=== PATIENT | female | born 1940 | race American Indian/Alaskan Native ===

== ENCOUNTER 2017-05-19 13:35 | Inpatient (IN) | payer MEDICARE ==
--- NOTE | 2017-05-19 13:51 | ED PDOC ---
HPI: Psych/Substance Abuse Time Seen by Provider: 05/19/17 13:44 Chief Complaint (Nursing): Psychiatric Evaluation Chief Complaint (Provider): Psychiatric Evaluation ED Caveat: Uncooperative History Per: Patient, EMS History/Exam Limitations: clinical condition Current Symptoms Are (Timing): Still Present Additional Complaint(s): Patient is a 18 y/o female brought to the ED by EMS after she was found wandering the streets, with bizarre behavior and aggression. In ED patient is aggressive, spitting at staff. Flight risk. Patient has abrasions diffusely on her body. She is in acute psychosis, there was attempt to verbally redirect patient, but patient is uncooperative and requiring 4 point restraints. Past medical history of heroin, cocaine, and alcohol abuse. Patient was reportedly supposed to be en route to [place] for rehab today. Buprenex was found in patients possession. Appears to have been filled on , 43 pills out of 60 remain (11 pills missing). Label suggests patient should be taking medication BID. PMD: Unknown Past Medical History Reviewed: Unable To Obtain Vital Signs: Last Vital Signs Temp 97.8 F 05/19/17 13:44 Pulse 110 H 05/19/17 13:44 Resp 18 05/19/17 13:44 BP 150/99 H 05/19/17 13:44 Pulse Ox 99 05/19/17 13:44 - Family History Family History: States: Unknown Family Hx - Social History Alcohol: > 2 Drinks/Day Drugs: Cocaine, Opiates - Allergies Allergies/Adverse Reactions: Allergies Allergy/AdvReac Type Severity Reaction Status Date / Time No Known Allergies Allergy Verified 05/19/17 13:39 Review of Systems Review Of Systems: ROS cannot be obtained secondary to pt's inabilty to answer questions. Physical Exam - Reviewed Nursing Documentation Reviewed: Yes Vital Signs Reviewed: Yes - ECG O2 Sat by Pulse Oximetry: 99 (RA) Pulse Ox Interpretation: Normal Medical Decision Making Medical Decision Making: Time: 13:45 Plan: --Will have crisis evaluation and blood work Scribe Attestation: Documented by Lianna Keating, acting as a scribe for Chantell Luis PA-C Provider Scribe Attestation: All medical record entries made by the Scribe were at my direction and personally dictated by me. I have reviewed the chart and agree that the record accurately reflects my personal performance of the history, physical exam, medical decision making, and the department course for this patient. I have also personally directed, reviewed, and agree with the discharge instructions and disposition. Disposition - Disposition Forms: [employer] (Bulgarian)
[2017-05-19 15:25] LABS: BASO % 0.4 % (0.0-2.0); EOS % 0.1 % (0.0-4.0); HEMATOCRIT 45.4 % (34.0-47.0); LYMPH # 1.6 K/uL (1.0-4.3); MEAN CELL VOLUME 95.3 fl (81.0-99.0); MEAN CORPUSCULAR HEMOGLOBIN 30.6 pg (27.0-31.0); MEAN CORPUSCULAR HGB CONC 32.1 g/dL (33.0-37.0); MEAN PLATELET VOLUME 10.8 fl (7.2-11.7); MONO # 0.5 K/uL (0.0-0.8); MONO % 7.1 % (0.0-10.0); NEUT # 4.6 K/uL (1.8-7.0); NEUT % 68.4 % (50.0-75.0); WHITE BLOOD COUNT 6.8 K/uL (4.8-10.8)
[2017-05-19 15:38] LABS: ALB/GLOB RATIO 1.3 (1.0-2.1); ALKALINE PHOSPHATASE 62 U/L (38-126); ALT/SGPT 29 U/L (9-52); AST/SGOT 25 U/L (14-36); BILIRUBIN,TOTAL 0.7 mg/dl (0.2-1.3); BLOOD UREA NITROGEN 20 mg/dl (7-17); CARBON DIOXIDE 23 mmol/L (22-30); CHLORIDE 104 mmol/L (98-107); GFR AFRICAN-AMERICAN > 60; GLUCOSE,RANDOM 210 mg/dL (65-105); POTASSIUM 3.8 MMOL/L (3.6-5.0); SODIUM 140 mmol/l (132-148)
[2017-05-19 16:24] LABS: RBC URINE 1 /hpf (0-3); URINE BACTERIA RARE (<OCC); URINE BILIRUBIN NEGATIVE (NEGATIVE); URINE BLOOD SMALL (NEGATIVE); URINE COLOR STRAW (YELLOW); URINE GLUCOSE (UA) 50 mg/dL (Normal); URINE KETONE NEGATIVE (NEGATIVE); URINE LEUKOCYTE ESTERASE NEG Leu/uL (Negative); URINE PROTEIN NEGATIVE (NEGATIVE); URINE UROBILINOGEN 0.2-1.0 mg/dL (0.2-1.0); WBC URINE < 1 /hpf (0-5)
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
[2017-05-19 19:13] VITALS: O2SAT 98
[2017-05-19] MEDS ORDERED: Bismuth Subsalicylate 262 mg/15 ml Sus (240 ml) PO PRN (22:08)
[2017-05-19] MEDS ORDERED: Alum-Mag Hydrox-Simethicone Susp (30 mL) PO PRN (22:08)
--- NOTE | 2017-05-19 22:54 | PCM.BM ---
<Shereen Norton - Last Filed: 05/19/17 22:52> Treatment Plan Problems - Problems identified on initial assessmt Agitated/Aggressive Behavior Date Initiated: 05/19/17 Time Initiated: 22:53 Assessment reference: NA Status: Active Delusion Date Initiated: 05/19/17 Time Initiated: 22:54 Assessment reference: NA Status: Active Treatment assets and liabiliti Patient Assests: adapts well, cooperative, self-reliant, good support system, negotiates basic needs, cognitively intact Patient Liabilities: medical problems, visual impairment - Milieu Protocol Maintain good personal hygiene: daily Encourage regular showers, daily Remind patient to perform daily oral care, other Assist patient to perform ADL's (prn) Conduct patient checks and document Observation sheet: Constant Maintain personal safety: every shift Educate patient to report safety concerns to staff, every shift Monitor environment for contraband/sharps Medication safety: Monitor for expected outcome, potential side effects: every shift, Assess barriers to learning: every shift, Assess readiness for medication education: every shift <Veronika Harris - Last Filed: 05/20/17 12:37> - Diagnosis (1) Psychosis Status: Acute Interventions: Individual and group therapy, medication management, psychoeducation 05/20/17 12:37 <Alex Vega - Last Filed: 05/25/17 10:15> Family Contact Family contact: Patient agrees to contact, Family has been contacted by patient , Telephone contact initiated by staff Family contact name: Lianna Yepez ([phone]) Family contacted how many times per week?: 2
[2017-05-20 07:39] LABS: T4 12.8 ug/dl (5.5-11.0)
[2017-05-20 07:53] LABS: THYROID STIMULATING HORMONE 3.83 mIU/ML (0.46-4.68)
[2017-05-20 08:05] LABS: IRON 108 ug/dL (37-170)
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
--- NOTE | 2017-05-20 09:37 | RAD ---
HISTORY: medical exam COMPARISON: No prior. FINDINGS: LUNGS: The lungs are well inflated and clear. PLEURA: No significant pleural effusion identified, no pneumothorax apparent. CARDIOVASCULAR: Normal. OSSEOUS STRUCTURES: No significant abnormalities. VISUALIZED UPPER ABDOMEN: Normal. OTHER FINDINGS: None. IMPRESSION: No active pulmonary disease.
--- NOTE | 2017-05-20 12:06 | CP.PCM.CON ---
History of Present Illness - History of Present Illness History of Present Illness: Reason for Consult: per hospital protocol CC: pt does not know why she is here HPI : 77 year old female with PMH glaucoma, HTN, HLD, DM, presents after a dispute with her family. Patient possibly early dementia. No other complaints, HD stable, NAD. ROS: per HPI, 12 systems reviewed and negative PMH: glaucoma, HTN, HLD, DM, PSH: glaucoma FH: denies SH: denies tobacco, ETOH, IVDU Meds: as below Allergies: NKDA Vitals: reviewed and currently stable Temp Pulse Resp BP Pulse Ox 97.2 F L 80 19 144/79 98 05/20/17 06:00 05/20/17 06:00 05/20/17 06:00 05/20/17 06:00 05/19/17 19:28 Exam: GEN: WDWN, alert, cooperative HEENT: NCAT, PERRL, EOMI NECK: supple, no JVD, no lymphadenopathy CARDIAC: +S1S2 RRR LUNG: CTAB No WRR ABD: SOFT NT ND BSX4 NO MASSES NO HSM EXT: +pedal pulses, equal strength NEURO: AAOx3 SKIN warm, dry PSYCH normal mood, normal affect Labs: 05/19/17 15:00 05/19/17 15:00 05/19/17 22:08 Acetaminophen [Tylenol 325mg tab] 650 mg PO Q4 PRN Aluminum Hydroxide/Magnesium [Maalox Plus 30 ml] 30 ml PO Q4 PRN Bismuth Subsalicylate [Pepto-Bismol] 524 mg PO Q4 PRN LORazepam [Ativan] 0.5 mg PO HS PRN LORazepam [Ativan] 0.5 mg PO Q6 PRN Magnesium Hydroxide [Milk Of Magnesia] 30 ml PO HS PRN Losartan [Cozaar] 50 mg PO DAILY Metoprolol Succinate [Toprol XL] 50 mg PO DAILY PrednisoLONE 1% [Pred Forte 1% Opht Susp] 1 drop OD DAILY Dorzolamide 2% [Trusopt] 1 drop OU TID Sitagliptin Phos/Metformin HCl [Janumet Xr 50-1,000 mg Tablet] 1 tab PO BID Atorvastatin [Lipitor] 40 mg PO DAILY Assessment and Plan: 77 year old female with PMH glaucoma, HTN, HLD, DM, presents after a dispute with her family. Patient possibly early dementia. No other complaints, HD stable , NAD. Psychiatric Issue Management per psych HTN continue toprol and cozaar DM continue DM meds GLAUCOMA continue drops Past Patient History - Past Social History Alcohol: None Drugs: Denies - CARDIAC Hx Cardiac Disorders: No Hx Hypertension: Yes - PULMONARY Hx Tuberculosis: No - NEUROLOGICAL HX Cerebrovascular Accident: No Hx Seizures: No - HEENT Hx Glaucoma: Yes (OU) - ENDOCRINE/METABOLIC Hx Diabetes Mellitus Type 1: Yes - HEMATOLOGICAL/ONCOLOGICAL Hx Cancer: No Hx Human Immunodeficiency Virus (HIV): No - MUSCULOSKELETAL/RHEUMATOLOGICAL Hx Falls: No - GENITOURINARY/GYNECOLOGICAL Hx Sexually Transmitted Disorders: No - PSYCHIATRIC Hx Substance Use: No - SURGICAL HISTORY Other/Comment: Surgeries both eyes - ANESTHESIA Hx Anesthesia: Yes Hx Anesthesia Reactions: No Hx Malignant Hyperthermia: No Has any member of the family had a problem w/ anesthesia?: No Meds Allergies/Adverse Reactions: Allergies Allergy/AdvReac Type Severity Reaction Status Date / Time No Known Allergies Allergy Verified 05/19/17 13:39 - Medications Medications: Current Medications Acetaminophen (Tylenol 325mg Tab) 650 mg PO Q4 PRN PRN Reason: Pain, moderate (4-7) Al Hydrox/Mg Hydrox/Simethicone (Maalox Plus 30 Ml) 30 ml PO Q4 PRN PRN Reason: Dyspepsia Atorvastatin Calcium (Lipitor) 40 mg PO DAILY PENDING SALE TO [facility] Bismuth Subsalicylate (Pepto-Bismol) 524 mg PO Q4 PRN PRN Reason: Diarrhea Dorzolamide HCl (Trusopt) 1 drop OU TID PENDING SALE TO [facility] Home Med (Sitagliptin Phos/Metformin Hcl [Janumet Xr 50-1,000 Mg Tablet]) 1 tab PO BID PENDING SALE TO [facility] Lorazepam (Ativan) 0.5 mg PO HS PRN PRN Reason: Insomnia Stop: 06/02/17 22:09 Last Admin: 05/19/17 22:39 Dose: 0.5 mg Lorazepam (Ativan) 0.5 mg PO Q6 PRN PRN Reason: Anixety/Agitation Stop: 06/02/17 22:09 Losartan Potassium (Cozaar) 50 mg PO DAILY PENDING SALE TO [facility] Magnesium Hydroxide (Milk Of Magnesia) 30 ml PO HS PRN PRN Reason: Constipation Metoprolol Succinate (Toprol Xl) 50 mg PO DAILY ANDREA Prednisolone Acetate (Pred Forte 1% Opht Susp) 1 drop OD DAILY ANDREA Results - Vital Signs Recent Vital Signs: Last Vital Signs Temp 97.2 F L 05/20/17 06:00 Pulse 80 05/20/17 06:00 Resp 19 05/20/17 06:00 BP 144/79 05/20/17 06:00 Pulse Ox 98 05/19/17 19:28 - Labs Result Diagrams: 05/19/17 15:00 05/19/17 15:00 Labs: Laboratory Results - last 24 hr 05/19/17 05/20/17 05/20/17 22:40 05:52 06:30 POC Glucose (mg/dL) 223 H 112 H Hemoglobin A1c Iron TIBC % Saturation Ferritin 29.9 Triglycerides 84 Cholesterol 131 LDL Cholesterol Direct 69 HDL Cholesterol 39 Vitamin B12 184 L Free T4 Thyroxine (T4) 12.8 H TSH 3rd Generation 3.83 05/20/17 05/20/17 05/20/17 06:30 06:30 06:30 POC Glucose (mg/dL) Hemoglobin A1c 7.7 H Iron 108 TIBC 336 % Saturation 32 Ferritin Triglycerides Cholesterol LDL Cholesterol Direct HDL Cholesterol Vitamin B12 Free T4 1.43 Thyroxine (T4) TSH 3rd Generation 05/20/17 10:47 POC Glucose (mg/dL) 265 H Hemoglobin A1c Iron TIBC % Saturation Ferritin Triglycerides Cholesterol LDL Cholesterol Direct HDL Cholesterol Vitamin B12 Free T4 Thyroxine (T4) TSH 3rd Generation
[2017-05-20] MEDS: Metoprolol Succinate 50 mg XL Tab PO SCH (15:38)
[2017-05-20] MEDS: PrednisoLONE 1% OPTH SUSP OD SCH (15:41)
[2017-05-20] MEDS: Dorzolamide 2% Ophth Soln OU SCH ×2 (15:42→21:01)
--- NOTE | 2017-05-20 16:33 | CT ---
PROCEDURE: CT HEAD WITHOUT CONTRAST. HISTORY: Episodes of confusion COMPARISON: None available. TECHNIQUE: Axial computed tomography images were obtained through the head/brain without intravenous contrast. Radiation dose: Total exam DLP = 767.42 mGy-cm. This CT exam was performed using one or more of the following dose reduction techniques: Automated exposure control, adjustment of the mA and/or kV according to patient size, and/or use of iterative reconstruction technique. FINDINGS: HEMORRHAGE: No intracranial hemorrhage. BRAIN: Nieves-white matter differentiation is preserved. There are mild chronic microangiopathic changes. There is no mass, mass effect or abnormal extra-axial fluid collection. There is no territorial infarction. VENTRICLES: There is mild age-related global parenchymal volume loss and proportionate enlargement of the ventricles and cortical sulci. CALVARIUM: There is severe hyperostosis frontalis interna. The skullbase is within normal limits. PARANASAL SINUSES: Predominantly clear. MASTOID AIR CELLS: Predominantly clear. OTHER FINDINGS: None. IMPRESSION: 1. No acute intracranial abnormality. 2. Mild chronic microangiopathic changes and mild age-related global parenchymal volume loss.
[2017-05-20 17:42] LABS: FOLATE 9.2 ng/mL
[2017-05-21] MEDS: Metoprolol Succinate 50 mg XL Tab PO SCH (08:53)
[2017-05-21] MEDS: PrednisoLONE 1% OPTH SUSP OD SCH (08:54)
[2017-05-21] MEDS: Dorzolamide 2% Ophth Soln OU SCH ×3 (09:20→21:29)
[2017-05-21] MEDS ORDERED: METFORMIN HCL PO SCH (09:30)
[2017-05-21] MEDS ORDERED: [UNRECOGNIZED DRUG - OTHER] PO SCH (09:30)
[2017-05-21] MEDS ORDERED: SITAGLIPTIN PHOS PO SCH (09:30)
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
[2017-05-21] MEDS: Insulin Lispro (humaLOG) 100 Units/ml Inj SC SCH ×2 (18:50→21:04)
[2017-05-21] MEDS: Magnesium Hydroxide Susp 30 ml UD PO PRN (21:09)
[2017-05-22] MEDS: Dorzolamide 2% Ophth Soln OU SCH ×3 (08:42→17:32)
[2017-05-22] MEDS: Metoprolol Succinate 50 mg XL Tab PO SCH (08:43)
[2017-05-22] MEDS: Insulin Lispro (humaLOG) 100 Units/ml Inj SC SCH ×4 (08:45→20:59)
[2017-05-22] MEDS: PrednisoLONE 1% OPTH SUSP OD SCH (08:46)
[2017-05-22] MEDS ORDERED: METFORMIN HCL PO SCH (09:00)
[2017-05-22] MEDS ORDERED: SITAGLIPTIN PHOS PO SCH (09:00)
[2017-05-22] MEDS ORDERED: [UNRECOGNIZED DRUG - OTHER] PO SCH (09:00)
--- NOTE | 2017-05-22 12:27 | PCM.PYCHPN ---
Psychiatric Progress Note - Psychiatric Progress Note Patient seen today, length of contact: discussed with team Patient Chief Complaint: my feet are dry Problems Identified/Issues Discussed: pt c/o dry feet and asking for neosporin for this. she is up in the day room eating. no aggressive behaviors. no evidence of medication side effects. Medical Problems: diabetes Medication Change: No ( ) Medical Record Reviewed: Yes Mental Status Examination - Cognitive Function Orientation: Person, Place, Situation, Time Memory: Impaired Attention: Poor Association: Loose Fund of Knowledge: WNL Decription of patient's judgement and insights: variable - Mood Mood: Neutral - Affect Affect: Broad - Speech Speech: Appropriate - Formal Thought Process Formal Thought Process: Delusions, Paranoia, Loosening of associations - Suicidal Ideation Suicidal Ideation: No - Homicidal Ideation Homicidal Ideation: No Goal/Treatment Plan - Goal/Treatment Plan Need for Continued Stay: Remain at risks for inpatient hospitalization, Discharge may exacerbated symptoms, Severe functional impairment Progress Toward Problem(s) and Goals/Treatment Plan: dementia with behavioral disturbance will continue current treatment per primary team Estimated Date of D/C: 05/25/17
[2017-05-22] MEDS: Magnesium Hydroxide Susp 30 ml UD PO PRN (20:53)
[2017-05-23] MEDS: Insulin Lispro (humaLOG) 100 Units/ml Inj SC SCH ×4 (09:16→21:05)
[2017-05-23] MEDS: PrednisoLONE 1% OPTH SUSP OD SCH (09:17)
[2017-05-23] MEDS: Metoprolol Succinate 50 mg XL Tab PO SCH (09:18)
[2017-05-23] MEDS: Dorzolamide 2% Ophth Soln OU SCH ×3 (09:18→19:29)
--- NOTE | 2017-05-23 12:41 | PCM.PYCHPN ---
Psychiatric Progress Note - Psychiatric Progress Note Patient seen today, length of contact: discussed with team Patient Chief Complaint: i feel good, just want to go home Problems Identified/Issues Discussed: pt sitting in hallway. thanks this flex o writer operator for helping her with her foot lotion order. she is pleasant. no c/o se with meds. expressing she wants to go home. Medical Problems: diabetes Medication Change: No ( ) Medical Record Reviewed: Yes Mental Status Examination - Cognitive Function Orientation: Person, Place, Situation, Time Memory: Impaired Attention: Poor Association: Loose Fund of Knowledge: WNL Decription of patient's judgement and insights: fair - Mood Mood: Neutral - Affect Affect: Broad - Speech Speech: Appropriate - Formal Thought Process Formal Thought Process: Delusions, Paranoia, Loosening of associations - Suicidal Ideation Suicidal Ideation: No - Homicidal Ideation Homicidal Ideation: No Goal/Treatment Plan - Goal/Treatment Plan Need for Continued Stay: Remain at risks for inpatient hospitalization, Discharge may exacerbated symptoms, Severe functional impairment Progress Toward Problem(s) and Goals/Treatment Plan: dementia with behavioral disturbance will continue current treatment per primary team Estimated Date of D/C: 05/25/17
[2017-05-24] MEDS: Insulin Lispro (humaLOG) 100 Units/ml Inj SC SCH ×4 (08:30→21:03)
--- NOTE | 2017-05-24 08:51 | PCM.PYCHPN ---
Psychiatric Progress Note - Psychiatric Progress Note Patient seen today, length of contact: Patient evaluated, case discussed with team, chart reviewed, 35 min Patient Chief Complaint: "I'm well" Problems Identified/Issues Discussed: Patient is calm and pleasant. She denies adverse effects to Risperdal. She is less pressured about her delusions about her jyuafpmk-gx-lgn, but continues to feel that she contaminated her clothing. She does not want to increase the dose of Risperdal at this time. Patient feels safe as long as she does not have to turn to living with her dnornbia-li-elc. Diagnostic Results: 05/20/17- Head CT WO CONTRAST- 1. No acute intracranial abnormality. 2. Mild chronic microangiopathic changes and mild age related global parenchymal volume loss. Medication Change: No ( ) Medical Record Reviewed: Yes Mental Status Examination - Cognitive Function Orientation: Person, Place, Situation, Time Memory: Impaired Attention: Poor Association: Loose Fund of Knowledge: WNL Decription of patient's judgement and insights: Poor I/ fair J - Mood Mood: Neutral - Affect Affect: Broad - Speech Speech: Appropriate - Formal Thought Process Formal Thought Process: Paranoia, Loosening of associations Psychotic Thoughts and Behaviors: +Less paranoia - Suicidal Ideation Suicidal Ideation: No - Homicidal Ideation Homicidal Ideation: No Goal/Treatment Plan - Goal/Treatment Plan Need for Continued Stay: Remain at risks for inpatient hospitalization, Discharge may exacerbated symptoms, Severe functional impairment Progress Toward Problem(s) and Goals/Treatment Plan: Psychosis unspecified, Dementia w/ behavioral disturbances; Patient continues to be paranoid and delusional. -Individual and group therapy -Medicine consult appreciated -Risperdal 0.5 mg PO HS (patient refused yesterday, now agreeable to taking the medication) -Case discussed w/ patient's son and daughter -Disposition planning Estimated Date of D/C: 05/26/17
[2017-05-24] MEDS: PrednisoLONE 1% OPTH SUSP OD SCH (09:18)
[2017-05-24] MEDS: Dorzolamide 2% Ophth Soln OU SCH ×3 (09:19→17:11)
[2017-05-24] MEDS: Metoprolol Succinate 50 mg XL Tab PO SCH (09:21)
[2017-05-25] MEDS: Insulin Lispro (humaLOG) 100 Units/ml Inj SC SCH ×4 (08:32→21:03)
[2017-05-25] MEDS: PrednisoLONE 1% OPTH SUSP OD SCH (08:33)
[2017-05-25] MEDS: Dorzolamide 2% Ophth Soln OU SCH ×3 (08:35→17:09)
[2017-05-25] MEDS: Metoprolol Succinate 50 mg XL Tab PO SCH (08:35)
--- NOTE | 2017-05-25 08:52 | PCM.PYCHPN ---
Psychiatric Progress Note - Psychiatric Progress Note Patient seen today, length of contact: Patient evaluated, case discussed with team, chart reviewed, 35 min Patient Chief Complaint: "I'm well" Problems Identified/Issues Discussed: Patient is calm and pleasant. She continues to have paranoia towards her pudoobtg-na-umi and has poor insight that this is not real, despite reality testing by policy writer sales. She denies adverse effects to Risperdal. She does not want to increase the dose of Risperdal at this time. She also does not believe she has memory deficits and likely dementia. Diagnostic Results: 05/20/17- Head CT WO CONTRAST- 1. No acute intracranial abnormality. 2. Mild chronic microangiopathic changes and mild age related global parenchymal volume loss. Medication Change: No ( ) Medical Record Reviewed: Yes Mental Status Examination - Cognitive Function Orientation: Person, Place, Situation, Time Memory: Impaired Attention: Poor Association: Loose Fund of Knowledge: WNL Decription of patient's judgement and insights: Poor I/ fair J - Mood Mood: Neutral - Affect Affect: Broad - Speech Speech: Appropriate - Formal Thought Process Formal Thought Process: Delusions, Paranoia, Loosening of associations Psychotic Thoughts and Behaviors: +Paranoia - Suicidal Ideation Suicidal Ideation: No - Homicidal Ideation Homicidal Ideation: No Goal/Treatment Plan - Goal/Treatment Plan Need for Continued Stay: Remain at risks for inpatient hospitalization, Discharge may exacerbated symptoms, Severe functional impairment Progress Toward Problem(s) and Goals/Treatment Plan: Psychosis unspecified, Dementia w/ behavioral disturbances; Patient continues to be paranoid and delusional. -Individual and group therapy -Medicine consult appreciated -Risperdal 0.5 mg PO HS, patient not agreeable to increasing the dosage at this time. -Case discussed w/ patient's son and daughter; policy writer sales spoke at length w/ patient 's daughter, Lianna Yepez re: patient's diagnosis and current treatment, including the risks/benefits of treatment with antipsychotics -Disposition planning Estimated Date of D/C: 05/28/17 - Smoking Cessation Smoking Cessation Initiated: No Reason for not providing: Not indicated
[2017-05-25] MEDS: Magnesium Hydroxide Susp 30 ml UD PO PRN (15:13)
[2017-05-26] MEDS: Metoprolol Succinate 50 mg XL Tab PO SCH (08:36)
[2017-05-26] MEDS: Dorzolamide 2% Ophth Soln OU SCH ×3 (08:37→16:33)
[2017-05-26] MEDS: Insulin Lispro (humaLOG) 100 Units/ml Inj SC SCH ×4 (08:39→21:44)
[2017-05-26] MEDS: PrednisoLONE 1% OPTH SUSP OD SCH (08:46)
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
[2017-05-27] MEDS: Metoprolol Succinate 50 mg XL Tab PO SCH (08:03)
[2017-05-27] MEDS: Insulin Lispro (humaLOG) 100 Units/ml Inj SC SCH ×4 (08:06→21:20)
[2017-05-27] MEDS: Dorzolamide 2% Ophth Soln OU SCH ×3 (08:12→16:10)
[2017-05-27] MEDS: PrednisoLONE 1% OPTH SUSP OD SCH (08:13)
--- NOTE | 2017-05-27 10:19 | PCM.PYCHPN ---
Psychiatric Progress Note - Psychiatric Progress Note Patient seen today, length of contact: Patient evaluated, case discussed with team, chart reviewed, 35 min Patient Chief Complaint: "I'm well" Problems Identified/Issues Discussed: Patient is calm and pleasant. She continues to have paranoia towards her sister -in-law, but this seems to be her baseline. She is not pressured about the paranoia and is able to understand that other people may not believe her delusions. She is also able to hear the instructional writer explain to her that she likely has dementia. She denies adverse effects to Risperdal. Diagnostic Results: 05/20/17- Head CT WO CONTRAST- 1. No acute intracranial abnormality. 2. Mild chronic microangiopathic changes and mild age related global parenchymal volume loss. Medication Change: No Medical Record Reviewed: Yes Mental Status Examination - Cognitive Function Orientation: Person, Place, Situation, Time Memory: Impaired Attention: Poor Association: Loose Fund of Knowledge: WNL Decription of patient's judgement and insights: Improving I/ fair J - Mood Mood: Neutral - Affect Affect: Broad - Speech Speech: Appropriate - Formal Thought Process Formal Thought Process: Paranoia, Loosening of associations Psychotic Thoughts and Behaviors: +Chronic paranoid delusions towards her kfggnfia-du-mvf at baseline. - Suicidal Ideation Suicidal Ideation: No - Homicidal Ideation Homicidal Ideation: No Goal/Treatment Plan - Goal/Treatment Plan Need for Continued Stay: Remain at risks for inpatient hospitalization, Discharge may exacerbated symptoms, Severe functional impairment Progress Toward Problem(s) and Goals/Treatment Plan: Psychosis unspecified, Dementia w/ behavioral disturbances; Patient is improving clinically. She seems to have chronic paranoia to her daughter-in- law which may be her new baseline of functioning. -Individual and group therapy -Medicine consult appreciated -Continue Risperdal 0.75 mg PO HS -Case discussed w/ patient's son and daughter -Disposition planning Estimated Date of D/C: 05/28/17 - Smoking Cessation Smoking Cessation Initiated: No Reason for not providing: Not indicated
[2017-05-28 06:07] VITALS: RESP 18; TEMP 97.1
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
[2017-05-28] MEDS: Insulin Lispro (humaLOG) 100 Units/ml Inj SC SCH ×2 (08:37→13:02)
[2017-05-28] MEDS: PrednisoLONE 1% OPTH SUSP OD SCH (08:40)
[2017-05-28] MEDS: Metoprolol Succinate 50 mg XL Tab PO SCH (08:41)
[2017-05-28] MEDS: Dorzolamide 2% Ophth Soln OU SCH ×2 (08:41→13:04)
[2017-05-28 08:51] VITALS: BP 120/72; PULSE 70
--- NOTE | 2017-05-28 10:06 | PCM.BM ---
Treatment Plan Problems - Problems identified on initial assessmt Agitated/Aggressive Behavior Date Initiated: 05/19/17 Time Initiated: 22:53 Assessment reference: NA Status: Active Delusion Date Initiated: 05/19/17 Time Initiated: 22:54 Assessment reference: NA Status: Active Treatment assets and liabiliti Patient Assests: adapts well, cooperative, self-reliant, good support system, negotiates basic needs, cognitively intact Patient Liabilities: medical problems, visual impairment - Milieu Protocol Maintain good personal hygiene: daily Encourage regular showers, daily Remind patient to perform daily oral care, other Assist patient to perform ADL's (prn) Conduct patient checks and document Observation sheet: Constant Maintain personal safety: every shift Educate patient to report safety concerns to staff, every shift Monitor environment for contraband/sharps Medication safety: Monitor for expected outcome, potential side effects: every shift, Assess barriers to learning: every shift, Assess readiness for medication education: every shift Milieu Narrative: Psychosis unspecified, Dementia w/ behavioral disturbances; Patient has improved clinically, is less paranoid and has better insight into her psychiatric issues. She seems to have mild chronic paranoia toward her daughter -in-law which is likely her new baseline of functioning. She will not be in further contact with her xdhadftr-is-swj as per family. Patient and family feel safe with the patient being discharged from the hospital. -Individual and group therapy -Medicine consult appreciated -Continue Risperdal 0.75 mg PO HS -Case discussed w/ patient's son and daughter -Disposition planning- discharge to assisted living facility chosen by patient' s family Family Contact Family contact: Patient agrees to contact, Family has been contacted by patient , Telephone contact initiated by staff Family contact name: Lianna Yepez ([phone]) Family contacted how many times per week?: 2 Discharge/Continuing Care - Treatment Team Participation Patient/Family/SO Statement: Psychosis unspecified, Dementia w/ behavioral disturbances; Patient has improved clinically, is less paranoid and has better insight into her psychiatric issues. She seems to have mild chronic paranoia toward her daughter -in-law which is likely her new baseline of functioning. She will not be in further contact with her igftbfjn-wl-icx as per family. Patient and family feel safe with the patient being discharged from the hospital. -Individual and group therapy -Medicine consult appreciated -Continue Risperdal 0.75 mg PO HS -Case discussed w/ patient's son and daughter -Disposition planning- discharge to assisted living facility chosen by patient' s family Treatment Plan Review - Problem Agitated/Aggressive Behavior Time Initiated: 22:53 Progress toward outcomes: resolved Delusion Time Initiated: 22:54 Progress toward outcomes: improved (Pt has periods of paranoia, however, is more insightful. Pt appears to be more aware of her paranoia and re-directable) - Discharge / Continuing Care Discharge to:: Other (Assisted Living Facility) Behavioral Health Services: Outpatient therapy, Other (Medication management with psychiatrist) Health Needs: Follow up care/test, Doctor appointments, Special equipment, Medications/Rx, Recreational/Social
--- NOTE | 2017-05-28 10:46 | CP.PCM.CON ---
History of Present Illness - History of Present Illness History of Present Illness: Pt is a 77 year old female admitted to the geropsych unit and referred to the communications writer for evaluation. Only portions of the DRS could be administered due to patient's visual deficits. On tasks administered, pt scored within normal limits on Attention and Initiation tasks. Pt's conceptualization and Memory skills fell in the Borderline Range. Pt spoke of her plan for Assisted Living on Discharge. Patient should be assisted with medication organization and financial analyst accountant. Attention 32 Conceptualization 30 (32+ within normal limits) Initiation 34 Memory 16 (18+ within normal limits) pt is very satisfied and looking forward toward the [facility], still delusional regarding daughter in law and her motives/actions. Thank you for this referral, Dr. Summers Past Patient History - Past Social History Alcohol: None Drugs: Denies - CARDIAC Hx Cardiac Disorders: No Hx Hypertension: Yes - PULMONARY Hx Tuberculosis: No - NEUROLOGICAL HX Cerebrovascular Accident: No Hx Seizures: No - HEENT Hx Glaucoma: Yes (OU) - ENDOCRINE/METABOLIC Hx Diabetes Mellitus Type 1: Yes - HEMATOLOGICAL/ONCOLOGICAL Hx Cancer: No Hx Human Immunodeficiency Virus (HIV): No - MUSCULOSKELETAL/RHEUMATOLOGICAL Hx Falls: No - GENITOURINARY/GYNECOLOGICAL Hx Sexually Transmitted Disorders: No - PSYCHIATRIC Hx Substance Use: No - SURGICAL HISTORY Other/Comment: Surgeries both eyes - ANESTHESIA Hx Anesthesia: Yes Hx Anesthesia Reactions: No Hx Malignant Hyperthermia: No Has any member of the family had a problem w/ anesthesia?: No Meds Home Medications: Home Medication List Medication Instructions Recorded Confirmed Type Atorvastatin [Lipitor] 40 mg PO DAILY #30 05/27/17 Rx Brinzolamide [Azopt] 1 drop RIGHTEYE BID #1 05/27/17 Rx Cyanocobalamin [Vitamin B12 1000 1,000 mcg PO DAILY tab 05/27/17 Rx mcg Tab] Losartan [Cozaar] 50 mg PO DAILY #30 05/27/17 Rx Metoprolol Succinate [Toprol XL] 50 mg PO DAILY #30 tab 05/27/17 Rx PrednisoLONE 1% [Pred Forte 1% 1 drop OD DAILY #1 05/27/17 Rx Opht Susp] Sitagliptin Phos/Metformin HCl 1 tab PO BID #60 05/27/17 Rx [Janumet Xr 50-1,000 mg Tablet] risperiDONE [RisperDAL Tab] 0.75 mg PO DAILY #90 tab 05/27/17 Rx Allergies/Adverse Reactions: Allergies Allergy/AdvReac Type Severity Reaction Status Date / Time No Known Allergies Allergy Verified 05/19/17 13:39 - Medications Medications: Current Medications Acetaminophen (Tylenol 325mg Tab) 650 mg PO Q4 PRN PRN Reason: Pain, moderate (4-7) Al Hydrox/Mg Hydrox/Simethicone (Maalox Plus 30 Ml) 30 ml PO Q4 PRN PRN Reason: Dyspepsia Atorvastatin Calcium (Lipitor) 40 mg PO HS [facility] Last Admin: 05/27/17 21:02 Dose: 40 mg Bismuth Subsalicylate (Pepto-Bismol) 524 mg PO Q4 PRN PRN Reason: Diarrhea Cyanocobalamin (Vitamin B12 1000 Mcg Tab) 1,000 mcg PO DAILY [facility] Last Admin: 05/28/17 08:48 Dose: 1,000 mcg Dorzolamide HCl (Trusopt) 1 drop OU TID [facility] Last Admin: 05/28/17 08:41 Dose: 1 drop Insulin Human Lispro (Humalog) 0 units SC ACHS [facility] PRN Reason: Protocol Last Admin: 05/28/17 08:37 Dose: 1 unit Lactic Acid (Lac-Hydrin 12% Lotion (225 G)) 1 applic TOP TID [facility] Last Admin: 05/28/17 08:39 Dose: 1 applic Lorazepam (Ativan) 0.5 mg PO HS PRN PRN Reason: Insomnia Stop: 06/02/17 22:09 Last Admin: 05/24/17 00:03 Dose: 0.5 mg Lorazepam (Ativan) 0.5 mg PO Q6 PRN PRN Reason: Anixety/Agitation Stop: 06/02/17 22:09 Losartan Potassium (Cozaar) 50 mg PO DAILY [facility] Last Admin: 05/28/17 08:36 Dose: 50 mg Magnesium Hydroxide (Milk Of Magnesia) 30 ml PO HS PRN PRN Reason: Constipation Last Admin: 05/25/17 15:13 Dose: 30 ml Metformin HCl (Glucophage) 500 mg PO BIDWM [facility] Last Admin: 05/28/17 08:37 Dose: 500 mg Metoprolol Succinate (Toprol Xl) 50 mg PO DAILY [facility] Last Admin: 05/28/17 08:41 Dose: 50 mg Prednisolone Acetate (Pred Forte 1% Opht Susp) 1 drop OD DAILY [facility] Last Admin: 05/28/17 08:40 Dose: 1 drop Risperidone (Risperdal Tab) 0.5 mg PO HS [facility] Last Admin: 05/27/17 21:02 Dose: 0.5 mg Risperidone (Risperdal Tab) 0.25 mg PO HS [facility] Last Admin: 05/27/17 21:02 Dose: 0.25 mg Sitagliptin Phosphate (Januvia) 50 mg PO BID [facility] Last Admin: 05/28/17 08:39 Dose: 50 mg Results - Vital Signs Recent Vital Signs: Last Vital Signs Temp 97.1 F L 05/28/17 06:00 Pulse 70 05/28/17 08:41 Resp 18 05/28/17 06:00 BP 120/72 05/28/17 08:41 Pulse Ox 98 05/19/17 19:28 - Labs Result Diagrams: 05/19/17 15:00 05/19/17 15:00 Labs: Laboratory Results - last 24 hr 05/27/17 05/27/17 05/27/17 10:57 15:25 19:48 POC Glucose (mg/dL) 294 H 131 H 211 H 05/28/17 06:01 POC Glucose (mg/dL) 152 H
== END 2017-05-28 13:30 | DRG 884 ==
LOC: H.ER 13:35 → H.EROBSV 16:38 → OBSVTOIN 18:13 → H.ERHOLD 18:13 → H.STEP 21:49
PROVIDERS: ADMIT Psychiatry & Neurology Psychiatry; ATTEND Psychiatry & Neurology Psychiatry
PROC: GZ51ZZZ Individual Psychotherapy, Behavioral (ICD-10-PCS; principal; 2017-05-19)
DX: F03.91 Unspecified dementia, unspecified severity, with behavioral disturbance (principal); E11.8 Type 2 diabetes mellitus with unspecified complications; Z79.4 Long term (current) use of insulin; E78.5 Hyperlipidemia, unspecified; F22 Delusional disorders; H40.9 Unspecified glaucoma; H54.2 Low vision, both eyes; H54.42 Blindness, left eye, normal vision right eye; I10 Essential (primary) hypertension; Z79.899 Other long term (current) drug therapy